=== PATIENT | female | born 1955 | race Caucasian/White ===

== ENCOUNTER 2019-05-06 07:37 | Emergency (ER) | payer BC ==
[~2019-05-06] VITALS: Ht 160 cm; Wt 65.8 kg
[~2019-05-06 07:37] MED LIST: NO HOME MEDICATIONS
[2019-05-06 07:39] VITALS: TEMP 98.6
[2019-05-06] MEDS ORDERED: MOBIC15 MG PO (07:49)
[2019-05-06] MEDS ORDERED: COZAAR 50MG50 MG/TAB PO (07:50)
[2019-05-06] MEDS ORDERED: NORVASC2.5 MG PO (07:50)
[2019-05-06] MEDS ORDERED: INDERAL 10MG10 MG PO (07:50)
[2019-05-06] MEDS ORDERED: EFFE25TA PO (07:52)
[2019-05-06 08:10] LABS: BASO % 0.4 % (0.0-2.0); EOS # 0.2 (0.0-0.7); EOS % 2.8 % (0-4.0); GRAN # 5.6 (1.4-6.5); GRAN % 74.4 % (42.2-75.2); HEMOGLOBIN 12.2 g/dl (12.5-16.0); LYMPH # 1.2 (1.2-3.4); LYMPH % 15.7 % (20.0-51.0); MEAN CELL VOLUME 95 fl (80.0-100.0); MEAN CORPUSCULAR HEMOGLOBIN 31 pg (27.0-31.0); MEAN CORPUSCULAR HGB CONC 33 g/dl (33.0-37.0); MEAN PLATELET VOLUME 10.6 fl (7.4-10.4); MONO # 0.5 (0.1-0.6); MONO % 6.4 % (1.7-9.3); PLATELET COUNT 187 K/mm3 (130-400); RED BLOOD COUNT 3.88 M/mm3 (4.10-5.30); REDCELL DISTRIBUTION WIDTH-CV 11.9 % (11.5-14.5)
[2019-05-06 08:11] LABS: HEMATOCRIT 36.8 % (37.0-47.0)
[2019-05-06 08:21] LABS: ALANINE AMINOTRANSFERASE 15 U/L (9-52); ALBUMIN 4.1 gm/dL (3.5-5.0); ALKALINE PHOSPHATASE 105 U/L (50-136); ANION GAP 9 mmol/L (7-16); AST,SGOT 43 U/L (15-37); BILIRUBIN,TOTAL 1.1 mg/dL (0.0-1.0); BLOOD UREA NITROGEN 25 mg/dL (7-17); CALCIUM 9.3 mg/dL (8.4-10.2); CARBON DIOXIDE 24 mmol/L (22-30); CHLORIDE 108 mmol/L (98-107); CREATININE, serum 0.64 (0.52-1.25); GLUCOSE 100 mg/dL (74-106); LIPASE 116 U/L (23-300); POTASSIUM 3.7 mmol/L (3.4-5.0); SODIUM 141 mmol/L (137-145); TOTAL PROTEIN 7.4 gm/dL (6.4-8.2)
[2019-05-06 08:24] LABS: C-REACTIVE PROTEIN < 0.5 mg/dL (0.0-0.9)
[2019-05-06 09:22] LABS: COLLECTION METHOD CLEAN CATCH
[2019-05-06 09:28] LABS: MUCOUS Present /lpf; PH 5 (5-8); SQUAMOUS EPITHELIAL None Seen /hpf; URINE APPEARANCE Clear; URINE BACTERIA None Seen /hpf; URINE BILIRUBIN Negative (NEGATIVE); URINE BLOOD 1+ (NEGATIVE); URINE COLOR Yellow; URINE GLUCOSE Negative (NEGATIVE); URINE KETONE Trace (NEGATIVE); URINE LEUKOCYTE ESTERASE Trace (NEGATIVE); URINE NITRATE Negative (NEGATIVE); URINE PROTEIN(semi-quant) Negative (NEGATIVE); URINE RBC 0-2 /hpf; URINE UROBILINOGEN Negative (NEGATIVE)
[2019-05-06 11:55] VITALS: BP 178/82; PULSE 71
== END 2019-05-06 12:00 | disposition home or self-care (01) ==
LOC: COL.ER 07:37
PROVIDERS: Family Medicine
DX: K59.00 Constipation, unspecified (principal); Z90.710 Acquired absence of both cervix and uterus; Z90.49 Acquired absence of other specified parts of digestive tract
CPT/HCPCS: J2405; J2550; J7030